=== PATIENT | female | born 1970 | race Caucasian/White ===

== ENCOUNTER 2016-11-15 10:27 | Outpatient (CLI) | payer OTHER ==
[~2016-11-15 10:27] MED LIST: ATORVASTATIN CA40 MG PO; HYDROCHLOROTHIA25 MG PO; IRON325 MG PO; JARDIANCE25 MG PO; LANTUS SOL100 UNITS/ SC; LEVOTHYROXINE100 MCG PO; METFORMIN HCL850 MG PO; METOPROLOL SUCC50 MG PO; PRILOSEC20 MG PO; PRINIVIL10 MG PO; TOPROL XL25 MG PO; VITAMIN B-121000 MCG PO
== END 2016-11-15 23:00 | disposition home or self-care (01) ==
LOC: LAB SRH 10:27
DX: E03.9 Hypothyroidism, unspecified (principal)
CPT/HCPCS: 90074; 93140